=== PATIENT | male | born 1960 | race Caucasian/White ===

== ENCOUNTER → 2021-07-25 | Outpatient (CLI) | payer OTHER ==
[~2021-07-25] MED LIST: IBUPROFEN800 MG PO
== END ==
LOC: KOH-I 09:44
DX: M54.50 Low back pain, unspecified (principal); W19.XXXA Unspecified fall, initial encounter; M47.814 Spondylosis without myelopathy or radiculopathy, thoracic region; M47.816 Spondylosis without myelopathy or radiculopathy, lumbar region; M51.36 Other intervertebral disc degeneration, lumbar region; M25.78 Osteophyte, vertebrae
CPT/HCPCS: 72070; 72100

== ENCOUNTER → 2021-11-08 | Outpatient (CLI) | payer OTHER | LOC: KOH-I 08:47 | DX: Z13.6 Encounter for screening for cardiovascular disorders (principal) | CPT/HCPCS: 76706-PO ==

== ENCOUNTER 2022-04-18 17:43 | Emergency (ER) | payer BC ==
[2022-04-18] MEDS ORDERED: AMOX TR-K CLV1 EAC4 PO (23:55)
== END 2022-04-19 00:11 | disposition home or self-care (01) ==
LOC: ER1 17:43
DX: S82.202B Unspecified fracture of shaft of left tibia, initial encounter for open fracture type I or II (principal); S81.812A Laceration without foreign body, left lower leg, initial encounter; E78.5 Hyperlipidemia, unspecified; W29.3XXA Contact with powered garden and outdoor hand tools and machinery, initial encounter
CPT/HCPCS: 12002; 73590; 73700; 96372; 99284; J0690